=== PATIENT | male | born 1960 | race Hispanic/Latino ===

== ENCOUNTER 2017-06-11 16:38 | Emergency (ER) | payer SELFPAY ==
[2017-06-11] MEDS ORDERED: Famotidine/PF 20 mg/2ml Vial ONE (16:46)
[2017-06-11] MEDS ORDERED: Sodium Chloride 0.9% 1,000 ML ONE (16:46)
[2017-06-11] MEDS ORDERED: methylPREDNISolone Sod Succ/PF 125 MG/2 ML VIAL ONE (16:46)
[2017-06-11] MEDS ORDERED: Adacel (T-DAP) 0.5 ML VIAL ONE (16:59)
== END 2017-06-11 18:14 | disposition home or self-care (01) ==
LOC: NAV ERS 16:38
DX: T63.461A Toxic effect of venom of wasps, accidental (unintentional), initial encounter (principal)
CPT/HCPCS: 90471; 90715; 94760; 96361; 96374; 96375; J2930; J7050; S0028